=== PATIENT | female | born 1985 | race African-American/Black ===

== ENCOUNTER 2019-05-28 20:46 | Emergency (ER) | payer OTHER ==
[~2019-05-28] VITALS: Ht 160 cm; Wt 76.2 kg
[2019-05-28] MEDS ORDERED: AMOXICILLIN 50500 MG PO (21:06)
[2019-05-28 21:41] VITALS: BP 109/70
== END 2019-05-28 21:47 | disposition home or self-care (01) ==
LOC: M.ERS 20:46
DX: J02.0 Streptococcal pharyngitis (principal)

== ENCOUNTER 2019-06-05 23:58 | Emergency (ER) | payer OTHER ==
[~2019-06-05] VITALS: Ht 160 cm; Wt 76.2 kg
[~2019-06-05 23:58] MED LIST: AMOXICILLIN 50500 MG PO
[2019-06-06 00:27] LABS: URINE BILIRUBIN NEGATIVE (Negative); URINE BLOOD NEGATIVE (Negative); URINE CLARITY CLEAR; URINE COLOR YELLOW; URINE GLUCOSE-RANDOM NEGATIVE (Negative); URINE KETONES NEGATIVE (Negative); URINE LEUKOCYTES-REFLEX NEGATIVE (Negative); URINE NITRITE-REFLEX NEGATIVE (Negative); URINE PROTEIN NEGATIVE (Negative); URINE SPECIFIC GRAVITY 1.025 (1.005-1.030)
[2019-06-06] MEDS ORDERED: DIFLUCAN150 MG PO (00:37)
[2019-06-06] MEDS ORDERED: CLEOCIN100 MG VAG (00:37)
[2019-06-06 00:47] VITALS: BP 106/74
== END 2019-06-06 00:47 | disposition home or self-care (01) ==
LOC: M.ERS 23:58
PROVIDERS: Emergency Medicine
DX: N76.0 Acute vaginitis (principal); B96.89 Other specified bacterial agents as the cause of diseases classified elsewhere; Z90.710 Acquired absence of both cervix and uterus

== ENCOUNTER 2019-07-24 19:36 | Emergency (ER) | payer OTHER ==
[~2019-07-24] VITALS: Ht 160 cm; Wt 77.1 kg
[~2019-07-24 19:36] MED LIST changes: +CLEOCIN100 MG VAG; +DIFLUCAN150 MG PO
[2019-07-24 22:22] VITALS: BP 114/80
== END 2019-07-24 22:24 | disposition left against medical advice (07) ==
LOC: M.ERS 19:36
DX: Z53.21 Procedure and treatment not carried out due to patient leaving prior to being seen by health care provider (principal)

== ENCOUNTER 2019-10-15 08:25 | Emergency (ER) | payer OTHER ==
[~2019-10-15] VITALS: Ht 160 cm; Wt 78.5 kg
[2019-10-15] MEDS ORDERED: HYDROXYZINE HCL10 M2 PO (08:38)
[2019-10-15 08:55] LABS: INFLUENZA A ANTIGEN Negative (Negative); INFLUENZA B ANTIGEN Negative (Negative)
[2019-10-15] MEDS ORDERED: MEDROLDOSEPACK PO (10:05)
[2019-10-15] MEDS ORDERED: AMOXICILLIN500 M1 PO (10:05)
[2019-10-15] MEDS ORDERED: PROMETHAZINE-C473 ML PO (10:05)
[2019-10-15 10:22] VITALS: BP 110/69
== END 2019-10-15 10:23 | disposition home or self-care (01) ==
LOC: M.ERS 08:25
PROVIDERS: Personal Emergency Response Attendant
DX: J03.90 Acute tonsillitis, unspecified (principal); J06.9 Acute upper respiratory infection, unspecified; Z90.710 Acquired absence of both cervix and uterus

== ENCOUNTER 2019-12-09 17:59 | Emergency (ER) | payer OTHER ==
[~2019-12-09] VITALS: Ht 160 cm; Wt 77.1 kg
[~2019-12-09 17:59] MED LIST changes: +AMOXICILLIN500 M1 PO; +HYDROXYZINE HCL10 M2 PO; +MEDROLDOSEPACK PO; +PROMETHAZINE-C473 ML PO
[2019-12-09 18:43] LABS: INFLUENZA A ANTIGEN Negative (Negative); INFLUENZA B ANTIGEN Negative (Negative)
[2019-12-09] MEDS ORDERED: PREDNISONE 20 M20 MG PO (19:39)
[2019-12-09 19:46] VITALS: BP 122/78
== END 2019-12-09 19:46 | disposition home or self-care (01) ==
LOC: M.ERS 17:59
PROVIDERS: Nurse Practitioner Family
DX: J06.9 Acute upper respiratory infection, unspecified (principal); Z90.710 Acquired absence of both cervix and uterus; Z86.2 Personal history of diseases of the blood and blood-forming organs and certain disorders involving the immune mechanism

== ENCOUNTER 2020-05-03 13:24 | Emergency (ER) | payer OTHER ==
[~2020-05-03] VITALS: Ht 160 cm; Wt 82.1 kg
[~2020-05-03 13:24] MED LIST changes: +PREDNISONE 20 M20 MG PO
[2020-05-03] MEDS ORDERED: METFORMIN HCL500 M3 PO (13:34)
[2020-05-03] MEDS ORDERED: PRILOSEC OTC20 MG PO (13:35)
[2020-05-03] MEDS ORDERED: AMOXICILLIN875 MG PO (14:09)
[2020-05-03] MEDS ORDERED: Magic Mouthwash SWISH&SPIT (14:09)
[2020-05-03 14:32] VITALS: BP 120/80
== END 2020-05-03 14:32 | disposition home or self-care (01) ==
LOC: M.ERS 13:24
DX: J03.00 Acute streptococcal tonsillitis, unspecified (principal); R59.1 Generalized enlarged lymph nodes; Z90.710 Acquired absence of both cervix and uterus; Z86.2 Personal history of diseases of the blood and blood-forming organs and certain disorders involving the immune mechanism

== ENCOUNTER 2020-07-29 10:53 | Emergency (ER) | payer OTHER ==
[~2020-07-29] VITALS: Ht 160 cm; Wt 84.8 kg
[~2020-07-29 10:53] MED LIST changes: +AMOXICILLIN875 MG PO; +METFORMIN HCL500 M3 PO; +Magic Mouthwash SWISH&SPIT; +PRILOSEC OTC20 MG PO
[2020-07-29] MEDS ORDERED: LEVOFLOXACIN750 MG PO (11:32)
[2020-07-29 12:42] LABS: ABSOLUTE BASOPHILS 0.1 thou/uL (0.0-0.2); ABSOLUTE EOSINOPHILS 0.1 thou/uL (0.0-0.7); ABSOLUTE LYMPHOCYTES 2.2 thou/uL (0.8-5.3); ABSOLUTE MONOCYTES 0.4 thou/uL (0.0-1.2); ABSOLUTE NEUTROPHILS 2.7 thou/uL (1.6-8.1); BASOPHILS 1.3 %; EOSINOPHILS 2.2 %; HEMATOCRIT 41.7 % (37.0-47.0); LYMPHOCYTES 39.8 %; MCH 31.3 pg (26.0-34.0); MCHC 33.6 g/dL (28.0-37.0); MCV 93.3 fL (80.0-100.0); MONOCYTES 7.6 %; MPV 8.5 fl. (7.2-11.1); NUCLEATED RBCS 0 /100WBC; PLATELET COUNT* 254 thou/uL (150-400); POLYS 49.1 %; RBC 4.47 mil/uL (4.20-5.00); RDW-CV 12.3 % (10.5-14.5); WBC 5.5 thou/uL (4.0-11.0)
[2020-07-29 12:59] LABS: CALCIUM 8.6 mg/dL (8.5-10.1); CREATININE 0.9 mg/dL (0.6-1.3)
[2020-07-29 13:04] LABS: ALBUMIN 3.5 g/dL (3.4-5.0); TOTAL BILIRUBIN 0.3 mg/dL (<0.1-1.0); TOTAL PROTEIN 7.5 g/dL (6.4-8.2)
[2020-07-29 14:12] LABS: URINE BILIRUBIN NEGATIVE (Negative); URINE BLOOD NEGATIVE (Negative); URINE CLARITY CLEAR; URINE COLOR YELLOW; URINE GLUCOSE-RANDOM NEGATIVE (Negative); URINE KETONES NEGATIVE (Negative); URINE LEUKOCYTES-REFLEX NEGATIVE (Negative); URINE NITRITE-REFLEX NEGATIVE (Negative); URINE PROTEIN NEGATIVE (Negative); URINE UROBILINOGEN 0.2 E.U./dl (0.2-1.0)
[2020-07-29] MEDS ORDERED: NORCO 5-325 TA1 EAC2 PO (15:54)
[2020-07-29] MEDS ORDERED: MEDROLDOSEPACK PO (15:54)
[2020-07-29] MEDS ORDERED: FLEXERIL PO (15:54)
[2020-07-29 16:20] VITALS: BP 118/70
--- NOTE | 2020-07-29 17:10 | EKG ---
[place] [address] ELECTROCARDIOGRAM REPORT Name: LISA MUSTAFA Room: [facility]#: [id number] Admission: 07/29/20 Attend Phys: Discharge: Date of : 83 Date of Service: 07/29/201211 Report #: [id number] THIS REPORT FOR: //name// [facility] ED Test Date: 2020-07-29 Test Time: 12:12:33 Pat Name: LISA MUSTAFA Department: Room: Gender: Canvas Cutter: ISABELL : 1985 Requested By: Lowell Betancourt Order Number: [id number] Rad MD: Willy Palencia Measurements Intervals [place] Rate: 59 P: 67 MS: 149 QRS: 59 QRSD: 92 T: 34 QT: 428 QTc: 424 Interpretive Statements Sinus rhythm Anteroseptal infarct, old, possible No previous ECG available for comparison Electronically Signed On 07-29-2020 17:09:57 CDT by Willy Palencia [email or web address] <ELECTRONICALLY SIGNED> By: Willy Palencia MD, MERGED WITH [facility] 07/29/20 1709 11 11 Willy Palencia MD, FACC /EPI
== END 2020-07-29 16:20 | disposition home or self-care (01) ==
LOC: M.ERS 10:53
PROVIDERS: Physician Assistant
DX: M54.12 Radiculopathy, cervical region (principal); Z90.710 Acquired absence of both cervix and uterus; Z79.899 Other long term (current) drug therapy

== ENCOUNTER 2021-05-30 16:58 | Emergency (ER) | payer BC ==
[~2021-05-30] VITALS: Ht 160 cm; Wt 83.5 kg
[~2021-05-30 16:58] MED LIST changes: +FLEXERIL PO; +LEVOFLOXACIN750 MG PO; +NORCO 5-325 TA1 EAC2 PO
[2021-05-30] MEDS ORDERED: METFORMIN HCL500 M3 PO (17:11)
[2021-05-30 17:31] LABS: URINE BILIRUBIN NEGATIVE (Negative); URINE BLOOD TRACE (Negative); URINE CLARITY CLEAR; URINE COLOR YELLOW; URINE GLUCOSE-RANDOM NEGATIVE (Negative); URINE KETONES NEGATIVE (Negative); URINE LEUKOCYTES-REFLEX NEGATIVE (Negative); URINE NITRITE-REFLEX NEGATIVE (Negative); URINE PROTEIN NEGATIVE (Negative); URINE SPECIFIC GRAVITY >= 1.030 (1.005-1.030); URINE UROBILINOGEN 0.2 E.U./dl (0.2-1.0)
[2021-05-30 18:08] VITALS: BP 115/82
== END 2021-05-30 18:08 | disposition left against medical advice (07) ==
LOC: M.ERS 16:58
PROVIDERS: Nurse Practitioner Family
DX: R10.9 Unspecified abdominal pain (principal); Z53.21 Procedure and treatment not carried out due to patient leaving prior to being seen by health care provider; M54.9 Dorsalgia, unspecified

== ENCOUNTER 2021-09-11 01:08 | Emergency (ER) | payer OTHER ==
[~2021-09-11] VITALS: Ht 160 cm; Wt 85.3 kg
[2021-09-11 01:24] LABS: URINE BILIRUBIN NEGATIVE (Negative); URINE BLOOD 3+ (Negative); URINE COLOR YELLOW; URINE GLUCOSE-RANDOM NEGATIVE (Negative); URINE KETONES NEGATIVE (Negative); URINE LEUKOCYTES-REFLEX TRACE (Negative); URINE NITRITE-REFLEX NEGATIVE (Negative); URINE PROTEIN NEGATIVE (Negative); URINE SPECIFIC GRAVITY >= 1.030 (1.005-1.030); URINE UROBILINOGEN 0.2 E.U./dl (0.2-1.0)
[2021-09-11 01:25] LABS: URINE CLARITY SL HAZY
[2021-09-11 01:31] LABS: BACTERIA-REFLEX >30 Many /HPF (None Seen); CASTS None Seen /LPF (None Seen); CRYSTALS None Seen /LPF (None Seen); MUCUS 0-3 Light strn/LPF (None Seen); SQUAMOUS 0-3 Few /LPF (0-3); URINE RBC >20 Many /HPF (0-2)
[2021-09-11] MEDS ORDERED: NOHOMEMEDICATIONS (01:33)
[2021-09-11 02:02] LABS: ABSOLUTE BASOPHILS 0.1 thou/uL (0.0-0.2); ABSOLUTE EOSINOPHILS 0.1 thou/uL (0.0-0.7); ABSOLUTE LYMPHOCYTES 2.4 thou/uL (0.8-5.3); ABSOLUTE MONOCYTES 0.6 thou/uL (0.0-1.2); ABSOLUTE NEUTROPHILS 4.4 thou/uL (1.6-8.1); BASOPHILS 1.3 %; EOSINOPHILS 1.6 %; HEMOGLOBIN 13.9 gm/dL (12.0-15.0); LYMPHOCYTES 31.8 %; MCH 31.4 pg (26.0-34.0); MCV 92.3 fL (80.0-100.0); MONOCYTES 7.3 %; MPV 8.8 fl. (7.2-11.1); NUCLEATED RBCS 0 /100WBC; PLATELET COUNT* 255 thou/uL (150-400); RBC 4.44 mil/uL (4.20-5.00); RDW-CV 12.2 % (10.5-14.5); WBC 7.6 thou/uL (4.0-11.0)
[2021-09-11 02:12] LABS: CALCIUM 8.9 mg/dL (8.5-10.1); POTASSIUM 3.7 mmol/L (3.5-5.1)
[2021-09-11] MEDS ORDERED: MACROBID 100 M100 M1 PO (02:12)
[2021-09-11 02:16] LABS: ALBUMIN 3.4 g/dL (3.4-5.0); TOTAL BILIRUBIN 0.3 mg/dL (<0.1-1.0); TOTAL PROTEIN 7.2 g/dL (6.4-8.2)
[2021-09-11 02:38] VITALS: BP 126/73
== END 2021-09-11 02:41 | disposition home or self-care (01) ==
LOC: M.ERS 01:08
PROVIDERS: Personal Emergency Response Attendant
DX: R31.9 Hematuria, unspecified (principal); Z20.2 Contact with and (suspected) exposure to infections with a predominantly sexual mode of transmission; Z90.710 Acquired absence of both cervix and uterus

== ENCOUNTER 2021-09-24 10:18 | Emergency (ER) | payer OTHER ==
[~2021-09-24] VITALS: Ht 160 cm; Wt 84.8 kg
[~2021-09-24 10:18] MED LIST changes: +MACROBID 100 M100 M1 PO; +NOHOMEMEDICATIONS
[2021-09-24 10:57] VITALS: BP 102/71
[2021-09-24 11:31] LABS: INFLUENZA A ANTIGEN Negative (Negative); INFLUENZA B ANTIGEN Negative (Negative)
== END 2021-09-24 11:52 | disposition home or self-care (01) ==
LOC: M.ERS 10:18
PROVIDERS: Family Medicine
DX: U07.1 COVID-19 (principal); Z90.710 Acquired absence of both cervix and uterus

== ENCOUNTER 2021-11-02 08:25 | Emergency (ER) | payer OTHER ==
[~2021-11-02] VITALS: Ht 160 cm; Wt 84.8 kg
[2021-11-02] MEDS ORDERED: OMEPRAZOLE 20 M20 M1 PO (08:46)
[2021-11-02 08:56] VITALS: BP 110/64
--- NOTE | 2021-11-03 09:13 | EKG ---
[place] [address] ELECTROCARDIOGRAM REPORT Name: LISA MUSTAFA Room: [facility]#: [id number] Admission: 11/02/21 Attend Phys: Discharge: 11/02/21 Date of : 83 Date of Service: 11/02/21 0840 Report #: [id number] THIS REPORT FOR: //name// [facility] ED Test Date: 2021-11-02 Test Time: 08:40:33 Pat Name: LISA MUSTAFA Department: Room: Gender: Network Security Consultant: : 1985 Requested By: Arthur Whitehead Order Number: [id number] Rad MD: Willy Palencia Measurements Intervals [place] Rate: 84 P: 75 TN: 157 QRS: 61 QRSD: 88 T: 33 QT: 367 QTc: 434 Interpretive Statements Sinus rhythm Baseline wander in lead(s) V6 Compared to ECG 07/29/2020 12:12:33 Myocardial infarct finding no longer present Electronically Signed On 11-03-2021 9:13:03 D[employer]ATE [employer] by Willy Palencia [email or web address] <ELECTRONICALLY SIGNED> By: Willy Palencia MD, [facility] 11/03/21 0913 Willy Palencia MD, [facility] /EPI
== END 2021-11-02 08:57 | disposition left against medical advice (07) ==
LOC: M.ERS 08:25
DX: R10.30 Lower abdominal pain, unspecified (principal); R11.0 Nausea; R07.89 Other chest pain; Z53.21 Procedure and treatment not carried out due to patient leaving prior to being seen by health care provider